=== PATIENT | female | born 1995 | race Caucasian/White ===

== ENCOUNTER → 2021-03-24 | Outpatient (CLI) | payer BC ==
[~2021-03-24] MED LIST: MACROBID 100 M100 MG PO
== END ==
LOC: KOH-I 03-19 09:45
DX: G43.009 Migraine without aura, not intractable, without status migrainosus (principal); R93.0 Abnormal findings on diagnostic imaging of skull and head, not elsewhere classified
CPT/HCPCS: 70551

== ENCOUNTER → 2021-04-25 | Outpatient (CLI) | payer BC | LOC: EROP 07:47 | DX: U07.1 COVID-19 (principal) | CPT/HCPCS: U0002 ==